=== PATIENT | female | born 1990 | race Hispanic/Latino ===

== ENCOUNTER 2018-02-18 03:28 | Emergency (ER) | payer OTHER ==
[2018-02-18] MEDS ORDERED: ALBUTEROL 2.5 MG/3 ML NEB SOL ONE ×2 (03:40→04:38)
[2018-02-18] MEDS ORDERED: METHYLPREDNISOLONE 125 MG INJ ONE (03:40)
[2018-02-18] MEDS ORDERED: IPRATROPIUM BROM 0.5MG/2.5ML ONE ×2 (03:40→04:38)
--- NOTE | 2018-02-18 05:13 | EDPHYS ---
Physician Documentation [facility] Name: Luci Whitley Age: 27 yrs Sex: Female : 1990 Arrival Date: 02/18/2018 Time: 03:28 Bed 20 Private MD: ED Physician Quinn Matute HPI: 02/18 03:56 This 27 yrs old Female presents to ER via Ambulatory with complaints of Asthma ps1 Exacerbation. 03:56 hx of asthma exacerbations in past. Took 3 albuterol AMBULATORY CARE COORDINATOR. Audible wheezing. No ps1 intubations. Feels like previous asthma exacerbations. Speaking in 3 word sentences. Not hypoxic. 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 - Social history:: Smoking status: Patient/guardian denies using tobacco. - Ebola Screening: : No symptoms or risks identified at this time. ROS: 03:56 Constitutional: Negative for fever, chills, and weight loss, Eyes: Negative for injury, ps1 pain, redness, and discharge, Cardiovascular: Negative for chest pain, palpitations, and edema, Abdomen/GI: Negative for abdominal pain, nausea, vomiting, diarrhea, and constipation, Back: Negative for injury and pain, MS/Extremity: Negative for injury and deformity, Skin: Negative for injury, rash, and discoloration, Neuro: Negative for headache, weakness, numbness, tingling, and seizure. 03:56 Respiratory: Positive for wheezing, expiratory, of the left posterior upper lobe, right posterior upper lobe, left posterior lower lobe, right posterior middle lobe and right posterior lower lobe. Exam: 03:56 Constitutional: This is a well developed, well nourished patient who is awake, alert, ps1 and in no acute distress. Head/Face: Normocephalic, atraumatic. Eyes: Pupils equal round and reactive to light, extra-ocular motions intact. Lids and lashes normal. Conjunctiva and sclera are non-icteric and not injected. Chest/axilla: Normal chest wall appearance and motion. Nontender with no deformity. No lesions are appreciated. Cardiovascular: Regular rate and rhythm. No gallops, murmurs, or rubs. Normal PMI, no JVD. No pulse deficits. Abdomen/GI: Soft, non-tender, with normal bowel sounds. No distension or tympany. No guarding or rebound. No evidence of tenderness throughout. Skin: Warm, dry with normal turgor. Normal color with no rashes, no lesions, and no evidence of cellulitis. MS/ Extremity: Pulses equal, no cyanosis. Neurovascular intact. Full, normal range of motion. Neuro: Awake and alert, GCS 15, oriented to person, place, time, and situation. Cranial nerves II-XII grossly intact. Sensory grossly intact. 03:56 Respiratory: mild respiratory distress is noted, Respirations: labored breathing, Breath sounds: wheezing: Vital Signs: 03:33 BP 138 / 104; Pulse 123; Resp 24; Temp 98.6(O); Pulse Ox 100% on R/A; Weight 104.33 kg ak1 (R); Height 5 ft. 4 in. (162.56 cm) (R); Pain 0/10; 04:28 BP 119 / 79; Pulse 111; Resp 20 S; Pulse Ox 100% on R/A; jd3 05:10 BP 109 / 73; Pulse 122; Resp 19 S; Pulse Ox 100% on R/A; jd3 03:33 Body Mass Index 39.48 (104.33 kg, 162.56 cm) ak1 MDM: 04:01 Patient medically screened. ps1 05:11 Data reviewed: vital signs, nurses notes, radiologic studies, plain films. Counseling: ps1 I had a detailed discussion with the patient and/or guardian regarding: the historical points, exam findings, and any diagnostic results supporting the discharge/admit diagnosis, radiology results, the need for outpatient follow up, an citrix lead. Medication response: albuterol nebulizer treatment(s) relieved the patient's symptoms. The patient is no longer wheezing. 02/18 03:43 Order name: Chest Pa And Lat (2 Views) XRAY jd3 02/18 03:43 Order name: IV; Complete Time: 03:43 jd3 Administered Medications: 03:42 Drug: SOLU-Medrol 125 mg Route: IVP; Site: left antecubital; jd3 04:12 Follow up: Response: No adverse reaction jd3 03:42 Drug: DuoNeb (3:1) (2.5 mg - 0.5 mg) 3 ml Route: Nebulizer; jd3 04:12 Follow up: Response: No adverse reaction jd3 04:35 Drug: DuoNeb (3:1) (2.5 mg - 0.5 mg) 3 ml Route: Nebulizer; jd3 05:11 Follow up: Response: No adverse reaction jd3 Disposition: 02/18/18 05:12 Discharged to Home. Impression: Mild intermittent asthma with (acute) exacerbation. - Condition is Stable. - Discharge Instructions: Asthma, Adult. - Prescriptions for Albuterol Sulfate 2.5 mg /3 mL (0.083 %) Inhalation Solution for Nebulization - inhale 1 unit by NEBULIZATION route every 8 hours As needed; 1 box. Medrol (Garth) 4 mg Oral Tablets, Dose Pack - take 1 tablet by ORAL route as directed - follow package instructions; 1 packet. Albuterol Sulfate 90 mcg/actuation - inhale 1-2 puff by INHALATION route every 4-6 hours; 1 Inhaler. - Medication Reconciliation Form, Thank You Letter, Antibiotic Education, Prescription Opioid Use form. - Follow up: Private Physician; Reason: Recheck today's complaints, Continuance of care, Re-evaluation by your physician. Follow up: Emergency Department; When: As needed; Reason: Fever > 102 F, Trouble breathing, Worsening of condition. - Problem is an acute exacerbation. - Symptoms are resolved. Signatures: Dispatcher [employer] EDFL Shara Albrecht RN RN ak1 Derrek Agee RN RN jd3 Quinn Matute MD MD ps1 Corrections: (The following items were deleted from the chart) 05:21 05:12 02/18/2018 05:12 Discharged to Home. Impression: Mild intermittent asthma with jd3 (acute) exacerbation. Condition is Stable. Forms are Medication Reconciliation Form, Thank You Letter, Antibiotic Education, Prescription Opioid Use. Follow up: Private Physician; Reason: Recheck today's complaints, Continuance of care, Re-evaluation by your physician. Follow up: Emergency Department; When: As needed; Reason: Fever > 102 F, Trouble breathing, Worsening of condition. Problem is an acute exacerbation. Symptoms are resolved. ps1
--- NOTE | 2018-02-18 05:13 | ER ---
Nurse's Notes [facility] Name: Luci Whitley Age: 27 yrs Sex: Female : 1990 Arrival Date: 02/18/2018 Time: 03:28 Bed 20 Private MD: Diagnosis: Mild intermittent asthma with (acute) exacerbation Presentation: 02/18 03:34 Presenting complaint: Patient states: SOB asthma attack started at 2100. pt used ak1 albuterol neb tx at 2100, albuterol inhaler at 0130 and last albuterol neb tx at 0300. pt c/o congestion and cough. Transition of care: patient was not received from another setting of care. Onset of symptoms was February 17, 2018. Risk Assessment: Do you want to hurt yourself or someone else? Patient reports no desire to harm self or others. Initial Sepsis Screen: Does the patient meet any 2 criteria? No. Patient's initial sepsis screen is negative. Does the patient have a suspected source of infection? No. Patient's initial sepsis screen is negative. Care prior to arrival: None. 03:34 Method Of Arrival: Ambulatory ak1 03:34 Acuity: [place] 3 ak1 Triage Assessment: 03:38 General: Appears distressed, uncomfortable, Behavior is cooperative. Pain: Denies pain. 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 - Social history:: Smoking status: Patient/guardian denies using tobacco. - Ebola Screening: : No symptoms or risks identified at this time. Screenin:38 Abuse screen: Denies threats or abuse. Denies injuries from another. Nutritional ak1 screening: No deficits noted. Tuberculosis screening: No symptoms or risk factors identified. Fall Risk None identified. Assessment: 03:35 General: Appears uncomfortable, Behavior is cooperative, anxious. Pain: Denies pain. jd3 Neuro: Level of Consciousness is awake, alert, obeys commands, Oriented to person, place, time, situation, Appropriate for age. Cardiovascular: Capillary refill < 3 seconds Patient's skin is warm and dry. Respiratory: Reports shortness of breath Airway is patent Respiratory effort is labored, Respiratory pattern is regular, Breath sounds with wheezes bilaterally. the patient has moderate shortness of breath. GI: No signs and/or symptoms were reported involving the gastrointestinal system. : No signs and/or symptoms were reported regarding the genitourinary system. EENT: No signs and/or symptoms were reported regarding the EENT system. Derm: Skin is intact, Skin is dry, Skin is normal, Skin temperature is warm. Musculoskeletal: Circulation, motion, and sensation intact. Range of motion: intact in all extremities. 04:35 Reassessment: Patient appears in no apparent distress at this time. Patient and/or jd3 family updated on plan of care and expected duration. Pain level reassessed. Patient is alert, oriented x 3, equal unlabored respirations, skin warm/dry/pink. pt reports feeling better after breathing treatment. Patient states feeling better. 05:11 Reassessment: Patient appears in no apparent distress at this time. Patient and/or jd3 family updated on plan of care and expected duration. Pain level reassessed. Patient is alert, oriented x 3, equal unlabored respirations, skin warm/dry/pink. Patient states feeling better. 05:20 Reassessment: Patient appears in no apparent distress at this time. Patient and/or jd3 family updated on plan of care and expected duration. Pain level reassessed. Patient is alert, oriented x 3, equal unlabored respirations, skin warm/dry/pink. Patient states feeling better. Vital Signs: 03:33 BP 138 / 104; Pulse 123; Resp 24; Temp 98.6(O); Pulse Ox 100% on R/A; Weight 104.33 kg ak1 (R); Height 5 ft. 4 in. (162.56 cm) (R); Pain 0/10; 04:28 BP 119 / 79; Pulse 111; Resp 20 S; Pulse Ox 100% on R/A; jd3 05:10 BP 109 / 73; Pulse 122; Resp 19 S; Pulse Ox 100% on R/A; jd3 03:33 Body Mass Index 39.48 (104.33 kg, 162.56 cm) ak1 ED Course: 03:28 Patient arrived in ED. ds1 03:33 Arm band placed on Patient placed in an exam room, on a stretcher, on pulse oximetry, ak1 Patient notified of wait time. 03:36 Triage completed. ak1 03:37 Patient has correct armband on for positive identification. Bed in low position. Call ak1 light in reach. Side rails up X 1. Pulse ox on. NIBP on. 03:38 Inserted saline lock: 20 gauge in left antecubital area, using aseptic technique. kadeem 03:40 Derrek Agee, RN is Primary Nurse. jd3 03:49 Quinn Matute MD is Attending Physician. ps1 04:06 Chest Pa And Lat (2 Views) XRAY In Process Unspecified. EDMS 05:19 No provider procedures requiring assistance completed. IV discontinued, intact, jd3 bleeding controlled, No redness/swelling at site. Pressure dressing applied. Administered Medications: 03:42 Drug: SOLU-Medrol 125 mg Route: IVP; Site: left antecubital; jd3 04:12 Follow up: Response: No adverse reaction jd3 03:42 Drug: DuoNeb (3:1) (2.5 mg - 0.5 mg) 3 ml Route: Nebulizer; jd3 04:12 Follow up: Response: No adverse reaction jd3 04:35 Drug: DuoNeb (3:1) (2.5 mg - 0.5 mg) 3 ml Route: Nebulizer; jd3 05:11 Follow up: Response: No adverse reaction jd3 Outcome: 05:12 Discharge ordered by MD. ps1 05:19 Discharged to home ambulatory. jd3 05:19 Condition: stable 05:19 Discharge instructions given to patient, Instructed on discharge instructions, follow up and referral plans. medication usage, Demonstrated understanding of instructions, follow-up care, medications, Prescriptions given X 3. 05:21 Patient left the ED. jd3 Signatures: Dispatcher [employer] [facility] Nunez, Christiane ds1 Shara Albrecht RN RN ak1 Lanie Agustin RN RN ea Davies, Jonathon, Quinn Ruiz RN, MD MD ps1 Corrections: (The following items were deleted from the chart) 04:35 04:11 Reassessment: Patient appears in no apparent distress at this time. Patient jd3 and/or family updated on plan of care and expected duration. Pain level reassessed. Patient is alert, oriented x 3, equal unlabored respirations, skin warm/dry/pink. pt reports feeling better after breathing treatment. Patient states feeling better. jd3
[2018-02-18 05:28] VITALS: TEMP 98.6; O2SAT 100
[2018-02-18 05:31] VITALS: BP 109/73
--- NOTE | 2018-02-18 06:09 | RAD REPORT ---
EXAM DESCRIPTION: Clyde Nieves (2 Views)02/18/2018 4:59 am CLINICAL HISTORY: Cough COMPARISON: 2012 FINDINGS: The lungs appear clear of acute infiltrate. The heart is normal size IMPRESSION: No acute abnormalities displayed
== END 2018-02-18 05:21 | disposition home or self-care (01) ==
LOC: ER 03:28
DX: J45.21 Mild intermittent asthma with (acute) exacerbation (principal); Z91.013 Allergy to seafood
CPT/HCPCS: 71046; 94640; 96374; 99284; J2930

== ENCOUNTER 2018-06-03 01:39 | Emergency (ER) | payer OTHER ==
[2018-06-03] MEDS ORDERED: MAGNESIUM SULFATE 1 gm IVPB 1 GM/100 ML BAG IV ONE (01:51)
[2018-06-03] MEDS ORDERED: IPRATROPIUM BROM 0.5MG/2.5ML ONE (01:51)
[2018-06-03] MEDS ORDERED: METHYLPREDNISOLONE 125 MG INJ ONE (01:51)
[2018-06-03] MEDS ORDERED: NA CHLORIDE 0.9% 1,000 ML ONE (01:51)
[2018-06-03] MEDS ORDERED: ALBUTEROL 2.5 MG/3 ML NEB SOL ONE (01:51)
[2018-06-03] MEDS ORDERED: LEVALBUTEROL 1.25 MG/3 ML NEB ONE (03:10)
--- NOTE | 2018-06-03 03:45 | EDPHYS ---
Physician Documentation [facility] Name: Luci Whitley Age: 27 yrs Sex: Female : 1990 Arrival Date: 06/03/2018 Time: 01:40 Bed 5 Private MD: ED Physician Andrea Xie HPI: 06/03 02:05 This 27 yrs old Female presents to ER via Wheelchair with complaints of jr8 Breathing Difficulty. 02:05 The patient has shortness of breath at rest. Onset: The symptoms/episode began/occurred jr8 acutely, today. Duration: The symptoms are continuous, and are markedly worse than the original presentation. The patient's shortness of breath is aggravated by coughing, light activity, talking, walking. Associated signs and symptoms: The patient has no apparent associated signs or symptoms. Severity of symptoms: At their worst the symptoms were moderate in the emergency department the symptoms are unchanged. The patient has experienced similar episodes in the past, a few times. The patient has not recently seen a physician. History of asthma. Started to have difficulty breathing today that markedly became worse tonight . 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 - Ebola Screening: : No symptoms or risks identified at this time. - Social history:: Smoking status: Patient/guardian denies using tobacco. ROS: 02:05 Eyes: Negative for injury, pain, redness, and discharge, ENT: Negative for injury, jr8 pain, and discharge, Neck: Negative for injury, pain, and swelling, Cardiovascular: Negative for chest pain, palpitations, and edema, Abdomen/GI: Negative for abdominal pain, nausea, vomiting, diarrhea, and constipation, Back: Negative for injury and pain, MS/Extremity: Negative for injury and deformity, Skin: Negative for injury, rash, and discoloration, Neuro: Negative for headache, weakness, numbness, tingling, and seizure. 02:05 Respiratory: Positive for cough, dyspnea on exertion, shortness of breath, wheezing. Exam: 02:05 Eyes: Pupils equal round and reactive to light, extra-ocular motions intact. Lids and jr8 lashes normal. Conjunctiva and sclera are non-icteric and not injected. Cornea within normal limits. Periorbital areas with no swelling, redness, or edema. ENT: Nares patent. No nasal discharge, no septal abnormalities noted. Tympanic membranes are normal and external auditory canals are clear. Oropharynx with no redness, swelling, or masses, exudates, or evidence of obstruction, uvula midline. Mucous membranes moist. Neck: Trachea midline, no thyromegaly or masses palpated, and no cervical lymphadenopathy. Supple, full range of motion without nuchal rigidity, or vertebral point tenderness. No Meningismus. Cardiovascular: Regular rate and rhythm with a normal S1 and S2. No gallops, murmurs, or rubs. Normal PMI, no JVD. No pulse deficits. Abdomen/GI: Soft, non-tender, with normal bowel sounds. No distension or tympany. No guarding or rebound. No evidence of tenderness throughout. Back: No spinal tenderness. No costovertebral tenderness. Full range of motion. Skin: Warm, dry with normal turgor. Normal color with no rashes, no lesions, and no evidence of cellulitis. MS/ Extremity: Pulses equal, no cyanosis. Neurovascular intact. Full, normal range of motion. Psych: Awake, alert, with orientation to person, place and time. Behavior, mood, and affect are within normal limits. 02:05 Respiratory: moderate respiratory distress is noted, Respirations: labored breathing, accessory muscle usage, tachypnea, Breath sounds: wheezing: expiratory that is moderate, is heard diffusely. Vital Signs: 01:48 BP 138 / 80; Pulse 137; Resp 24; Temp 98.9(A); Pulse Ox 100% on R/A; Weight 90.72 kg; tl2 Height 5 ft. 6 in. (167.64 cm); 02:03 Pulse 120; Resp 16; Pulse Ox 100% on Nebulizer Mask; lp1 02:45 BP 114 / 63; Pulse 109; Resp 20; Pulse Ox 97% on R/A; lp1 03:30 BP 107 / 81; Pulse 112; Resp 19; Pulse Ox 100% on Nebulizer Mask; lp1 04:00 BP 103 / 84; Pulse 110; Resp 21; Pulse Ox 98% on R/A; ca1 01:48 Body Mass Index 32.28 (90.72 kg, 167.64 cm) tl2 MDM: 01:47 Patient medically screened. jr8 01:49 Patient medically screened. jr8 03:01 Data reviewed: vital signs, nurses notes, radiologic studies, plain films. Data jr8 interpreted: Pulse oximetry: on room air is 95 %. Interpretation: normal. Counseling: I had a detailed discussion with the patient and/or guardian regarding: the historical points, exam findings, and any diagnostic results supporting the discharge/admit diagnosis, radiology results, the need for outpatient follow up, a family practitioner, to return to the emergency department if symptoms worsen or persist or if there are any questions or concerns that arise at home. Response to treatment: the patient's symptoms have markedly improved after treatment. 06/03 01:48 Order name: XRAY Chest (1 view) jr8 06/03 01:47 Order name: IV; Complete Time: 01:52 jr8 Administered Medications: 01:44 Drug: SOLU-Medrol 125 mg Route: IVP; Site: right antecubital; tl2 02:50 Follow up: Response: No adverse reaction lp1 01:44 Drug: Magnesium Sulfate 1 grams Route: IVPB; Infused Over: 1 hrs; Site: right tl2 antecubital; 02:50 Follow up: IV Status: Completed infusion; IV Intake: 100ml lp1 01:44 Drug: NS 0.9% 1000 ml Route: IV; Rate: 1000 ml; Site: right antecubital; tl2 04:06 Follow up: IV Status: Completed infusion ca1 01:52 Drug: DuoNeb (3:1) (2.5 mg - 0.5 mg) 3 ml Route: Nebulizer; tl2 02:50 Follow up: Response: Marked relief of symptoms lp1 03:05 Drug: Xopenex (3) 1.25 mg Route: Inhalation; lp1 Disposition: 15:53 Co-signature as Attending Physician, Andrea Xie MD I agree with the assessment and dex plan of care. Disposition: 06/03/18 03:44 Discharged to Home. Impression: Mild persistent asthma with (acute) exacerbation. - Condition is Stable. - Discharge Instructions: Asthma, Adult. - Prescriptions for Prednisone 20 mg Oral Tablet - take 1 tablet by ORAL route once daily for 5 days; 5 tablet. Albuterol Sulfate 2.5 mg /3 mL (0.083 %) Inhalation Solution for Nebulization - inhale 1 unit by NEBULIZATION route every 8 hours As needed; 1 box. Albuterol Sulfate 90 mcg/actuation - inhale 1-2 puff by INHALATION route every 4-6 hours; 1 Inhaler. - Medication Reconciliation Form, Thank You Letter, Antibiotic Education, Prescription Opioid Use form. - Follow up: Private Physician; When: 2 - 3 days; Reason: Recheck today's complaints, Continuance of care, Re-evaluation by your physician. - Problem is new. - Symptoms have improved. Signatures: Dispatcher [employer] EDMS Andrea Xie MD MD cha Pena, Laura, RN RN lp1 Guanako Pierre PA PA jr8 Balbina Cano, RN RN tl2 Heather Morrison RN RN ca1 Corrections: (The following items were deleted from the chart) 04:05 03:44 06/03/2018 03:44 Discharged to Home. Impression: Mild persistent asthma with ca1 (acute) exacerbation. Condition is Stable. Discharge Instructions: Asthma, Adult. Prescriptions for Prednisone 20 mg Oral Tablet - take 1 tablet by ORAL route once daily for 5 days; 5 tablet, Albuterol Sulfate 2.5 mg /3 mL (0.083 %) Inhalation Solution for Nebulization - inhale 1 unit by NEBULIZATION route every 8 hours As needed; 1 box, Albuterol Sulfate 90 mcg/actuation - inhale 1-2 puff by INHALATION route every 4-6 hours; 1 Inhaler. and Forms are Medication Reconciliation Form, Thank You Letter, Antibiotic Education, Prescription Opioid Use. Follow up: Private Physician; When: 2 - 3 days; Reason: Recheck today's complaints, Continuance of care, Re-evaluation by your physician. Problem is new. Symptoms have improved. jr8
--- NOTE | 2018-06-03 03:45 | ER ---
Nurse's Notes [facility] Name: Luci Whitley Age: 27 yrs Sex: Female : 1990 Arrival Date: 06/03/2018 Time: 01:40 Bed 5 Private MD: Diagnosis: Mild persistent asthma with (acute) exacerbation Presentation: 06/03 01:45 Presenting complaint: Patient states: Asthma attack all day, has gotten worse tonight. tl2 Severe labored breathing and coughing. DARIEL wheezing and tightness. Transition of care: patient was not received from another setting of care. Onset of symptoms was June 02, 2018. Risk Assessment: Do you want to hurt yourself or someone else? Patient reports no desire to harm self or others. Initial Sepsis Screen: Does the patient meet any 2 criteria? No. Patient's initial sepsis screen is negative. Does the patient have a suspected source of infection? No. Patient's initial sepsis screen is negative. Care prior to arrival: None. 01:45 Method Of Arrival: Wheelchair tl2 01:45 Acuity: [place] 2 tl2 Triage Assessment: 01:48 General: Appears distressed, Behavior is anxious. Pain: Denies pain. Neuro: Level of tl2 Consciousness is awake, alert, obeys commands, Oriented to person, place, time, situation. Respiratory: Reports shortness of breath cough that is labored breathing Airway is patent Respiratory effort is labored, with retractions, Respiratory pattern is tachypnea Breath sounds with wheezes bilaterally. Onset: The symptoms/episode began/occurred today, the patient has severe shortness of breath. GI: No signs and/or symptoms were reported involving the gastrointestinal system. : No signs and/or symptoms were reported regarding the genitourinary system. Derm: Skin is pink, warm \T\ dry. 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 - Ebola Screening: : No symptoms or risks identified at this time. - Social history:: Smoking status: Patient/guardian denies using tobacco. Screenin:51 Abuse screen: Denies threats or abuse. Nutritional screening: No deficits noted. tl2 Tuberculosis screening: No symptoms or risk factors identified. Fall Risk None identified. Assessment: 01:51 General: see triage assessment. tl2 01:53 Cardiovascular: Rhythm is. tl2 02:54 Reassessment: Patient appears in no apparent distress at this time. Patient and/or ca1 family updated on plan of care and expected duration. Pain level reassessed. Patient is alert, oriented x 3, equal unlabored respirations, skin warm/dry/pink. Patient sitting on bed. . 03:00 Reassessment: Patient states feeling better. General: Behavior is calm. Respiratory: lp1 Respiratory effort is even, Respiratory pattern is regular, symmetrical, Breath sounds with wheezes bilaterally. 04:00 Reassessment: Patient appears in no apparent distress at this time. Patient and/or ca1 family updated on plan of care and expected duration. Pain level reassessed. Patient is alert, oriented x 3, equal unlabored respirations, skin warm/dry/pink. Patient states feeling better. Patient states symptoms have improved. Vital Signs: 01:48 BP 138 / 80; Pulse 137; Resp 24; Temp 98.9(A); Pulse Ox 100% on R/A; Weight 90.72 kg; tl2 Height 5 ft. 6 in. (167.64 cm); 02:03 Pulse 120; Resp 16; Pulse Ox 100% on Nebulizer Mask; lp1 02:45 BP 114 / 63; Pulse 109; Resp 20; Pulse Ox 97% on R/A; lp1 03:30 BP 107 / 81; Pulse 112; Resp 19; Pulse Ox 100% on Nebulizer Mask; lp1 04:00 BP 103 / 84; Pulse 110; Resp 21; Pulse Ox 98% on R/A; ca1 01:48 Body Mass Index 32.28 (90.72 kg, 167.64 cm) tl2 ED Course: 01:40 Patient arrived in ED. es 01:47 Triage completed. tl2 01:47 Guanako Pierre PA is PHCP. jr8 01:48 Andrea Xie MD is Attending Physician. jr8 01:48 Arm band placed on right wrist. tl2 01:51 Patient has correct armband on for positive identification. Bed in low position. Call tl2 light in reach. Side rails up X 1. 01:51 Inserted saline lock: 20 gauge in right antecubital area, using aseptic technique. tl2 placed by LARISSA Huffman. 02:03 Armida De León RN is Primary Nurse. lp1 02:19 X-ray completed. Portable x-ray completed in exam room. Patient tolerated procedure kw well. 02:21 XRAY Chest (1 view) In Process Unspecified. EDMS 03:38 No provider procedures requiring assistance completed. lp1 04:00 IV discontinued, intact, bleeding controlled, No redness/swelling at site. Pressure ca1 dressing applied. Administered Medications: 01:44 Drug: SOLU-Medrol 125 mg Route: IVP; Site: right antecubital; tl2 02:50 Follow up: Response: No adverse reaction lp1 01:44 Drug: Magnesium Sulfate 1 grams Route: IVPB; Infused Over: 1 hrs; Site: right tl2 antecubital; 02:50 Follow up: IV Status: Completed infusion; IV Intake: 100ml lp1 01:44 Drug: NS 0.9% 1000 ml Route: IV; Rate: 1000 ml; Site: right antecubital; tl2 04:06 Follow up: IV Status: Completed infusion ca1 01:52 Drug: DuoNeb (3:1) (2.5 mg - 0.5 mg) 3 ml Route: Nebulizer; tl2 02:50 Follow up: Response: Marked relief of symptoms lp1 03:05 Drug: Xopenex (3) 1.25 mg Route: Inhalation; lp1 Intake: 02:50 IV: 100ml; Total: 100ml. lp1 Outcome: 03:44 Discharge ordered by MD. hardy 04:00 Discharged to home ambulatory. ca1 04:00 Condition: stable 04:00 Discharge instructions given to patient, Instructed on discharge instructions, follow up and referral plans. medication usage, Demonstrated understanding of instructions, follow-up care, medications, Prescriptions given X 3. 04:05 Patient left the ED. ca1 Signatures: Dispatcher [employer] EDCherelle Morfin Kimberlee kw Pena, Laura, RN RN lp1 Guanako Pierre PA PA jr8 Knox, Taylor, RN RN tl2 Heather Morrison RN RN ca1 Corrections: (The following items were deleted from the chart) 04:02 04:02 Reassessment: Patient appears in no apparent distress at this time. Patient ca1 and/or family updated on plan of care and expected duration. Pain level reassessed. Patient is alert, oriented x 3, equal unlabored respirations, skin warm/dry/pink. Patient states feeling better. Patient states symptoms have improved. ca1
[2018-06-03 04:42] VITALS: TEMP 98.9
[2018-06-03 04:45] VITALS: BP 107/81; O2SAT 100
--- NOTE | 2018-06-03 08:05 | RAD REPORT ---
EXAM DESCRIPTION: Cly[place] Single View06/03/2018 2:22 am CLINICAL HISTORY: Shortness of breath COMPARISON: February 2018 FINDINGS: The lungs appear clear of acute infiltrate. The heart is normal size. IMPRESSION: No acute abnormalities displayed
--- NOTE | 2018-06-03 18:08 | EKG ---
Test Date: 2018-06-03 Test Time: 01:48:38 Pressure Controller: STONEY MEASUREMENT RESULTS: Intervals: Rate: 131 DC: 140 QRSD: 70 QT: 292 QTc: 431 Spearfish: P: 64 DC: 140 QRS: 70 T: 49 INTERPRETIVE STATEMENTS: Sinus tachycardia Otherwise normal ECG Electronically Signed On 06-03-18 18:05:32 HOME MISSION WORKER by Ambrosio Acevedo
== END 2018-06-03 04:05 | disposition home or self-care (01) ==
LOC: ER 01:39
DX: J45.31 Mild persistent asthma with (acute) exacerbation (principal); E03.9 Hypothyroidism, unspecified; Z91.013 Allergy to seafood
CPT/HCPCS: 71045; 93005; 94640; 96361; 96365; 96375; 99284; J2930; J3475; J7030

== ENCOUNTER 2018-09-13 19:12 | Emergency (ER) | payer OTHER ==
[2018-09-13] MEDS ORDERED: ALBUTEROL 2.5 MG/3 ML NEB SOL ONE (19:27)
[2018-09-13] MEDS ORDERED: IPRATROPIUM BROM 0.5MG/2.5ML ONE (19:27)
[2018-09-13] MEDS ORDERED: METHYLPREDNISOLONE 125 MG INJ ONE (19:27)
[2018-09-13] MEDS ORDERED: NA CHLORIDE 0.9% 0 ML ONE (19:28)
[2018-09-13] MEDS ORDERED: Magnesium Sulfate 2gm IVPB 0 G/0 ML BAG IV ONE (19:28)
--- NOTE | 2018-09-13 21:41 | EDPHYS ---
Physician Documentation [facility] Name: Luci Whitley Age: 27 yrs Sex: Female : 1990 Arrival Date: 09/13/2018 Time: 19:13 Bed 13 Private MD: Julien Shoemaker H ED Physician Juan Carlos Darling HPI: 09/13 19:21 This 27 yrs old Female presents to ER via Unassigned with complaints of Asthma tw4 Exacerbation. 19:21 The patient presents to the emergency department with wheezing, Current therapy: None. tw4 Onset: The symptoms/episode began/occurred today. Modifying factors: The symptoms are alleviated by nothing, the symptoms are aggravated by nothing. Associated signs and symptoms: The patient has no apparent associated signs or symptoms. Severity of symptoms: At their worst the symptoms were moderate in the emergency department the symptoms are unchanged. The patient has not experienced similar symptoms in the past. 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 - Social history:: Smoking status: Patient/guardian denies using tobacco, Patient/guardian denies using alcohol, street drugs. - Ebola Screening: : No symptoms or risks identified at this time. ROS: 19:21 Constitutional: Negative for fever, chills, and weight loss, Eyes: Negative for injury, tw4 pain, redness, and discharge, Cardiovascular: Negative for chest pain, palpitations, and edema, Abdomen/GI: Negative for abdominal pain, nausea, vomiting, diarrhea, and constipation, Back: Negative for injury and pain, MS/Extremity: Negative for injury and deformity, Skin: Negative for injury, rash, and discoloration, Neuro: Negative for headache, weakness, numbness, tingling, and seizure. 19:21 Respiratory: Positive for cough, with no reported sputum, shortness of breath, wheezing. Exam: 19:21 Constitutional: This is a well developed, well nourished patient who is awake, alert, tw4 and in no acute distress. Head/Face: Normocephalic, atraumatic. Chest/axilla: Normal chest wall appearance and motion. Nontender with no deformity. No lesions are appreciated. Cardiovascular: Regular rate and rhythm with a normal S1 and S2. No gallops, murmurs, or rubs. Normal PMI, no JVD. No pulse deficits. Respiratory: Lungs have equal breath sounds bilaterally, clear to auscultation and percussion. No rales, rhonchi or wheezes noted. No increased work of breathing, no retractions or nasal flaring. Abdomen/GI: Soft, non-tender, with normal bowel sounds. No distension or tympany. No guarding or rebound. No evidence of tenderness throughout. Skin: Warm, dry with normal turgor. Normal color with no rashes, no lesions, and no evidence of cellulitis. MS/ Extremity: Pulses equal, no cyanosis. Neurovascular intact. Full, normal range of motion. Neuro: Awake and alert, GCS 15, oriented to person, place, time, and situation. Cranial nerves II-XII grossly intact. Motor strength 5/5 in all extremities. Sensory grossly intact. Cerebellar exam normal. Normal gait. Vital Signs: 19:20 BP 133 / 119; Pulse 119; Resp 14 S; Temp 98.2(O); Pulse Ox 99% on R/A; Weight 102.06 kg bb (R); Height 5 ft. 4 in. (162.56 cm) (R); Pain 4/10; 19:35 BP 124 / 90; Pulse 108; Resp 14 S; Pulse Ox 98% on 7% Nebulizer Mask; bb 20:45 BP 119 / 68; Pulse 111; Resp 20 S; Pulse Ox 98% on 2 lpm NC; cc3 21:45 BP 120 / 82; Pulse 109; Resp 19 S; Pulse Ox 96% on R/A; cc3 19:20 Body Mass Index 38.62 (102.06 kg, 162.56 cm) bb MDM: 19:17 Patient medically screened. tw4 09/14 07:18 Differential diagnosis: acute asthma. Data reviewed: vital signs, nurses notes. Data tw4 interpreted: Pulse oximetry: is not applicable for this patient encounter. Counseling: I had a detailed discussion with the patient and/or guardian regarding: the historical points, exam findings, and any diagnostic results supporting the discharge/admit diagnosis, the presence of at least one elevated blood pressure reading (>120/80) during this emergency department visit, lab results. Medication response: albuterol nebulizer treatment(s) relieved the patient's symptoms. The patient is no longer wheezing. Response to treatment: and as a result, I will discharge patient. Administered Medications: 09/13 19:18 Drug: DuoNeb (3:1) (2.5 mg - 0.5 mg) 3 ml Route: Nebulizer; bb 20:00 Follow up: Response: No adverse reaction; Marked relief of symptoms cc3 19:21 Drug: SOLU-Medrol 125 mg Route: IVP; Site: right antecubital; bb 20:00 Follow up: Response: No adverse reaction; Marked relief of symptoms cc3 Disposition: 09/13/18 21:40 Discharged to Home. Impression: Asthma. - Condition is Stable. - Discharge Instructions: Asthma, Acute Bronchospasm. - Prescriptions for Albuterol Sulfate 2.5 mg /3 mL (0.083 %) Inhalation Solution for Nebulization - inhale 1 unit by NEBULIZATION route every 8 hours As needed; 1 box. Medrol (Garth) 4 mg Oral Tablets, Dose Pack - take 1 tablet by ORAL route as directed - follow package instructions; 1 packet. Albuterol Sulfate 90 mcg/actuation - inhale 1-2 puff by INHALATION route every 4-6 hours; 1 Inhaler. - Medication Reconciliation Form, Thank You Letter, Antibiotic Education, Prescription Opioid Use form. - Follow up: Julien Shoemaker DO; When: Upon discharge from the Emergency Department; Reason: If symptoms return, Recheck today's complaints, Continuance of care. - Problem is new. - Symptoms have improved. Signatures: Taylor Simeon RN RN Juan Carlos Mccullough MD MD tw4 Amalia Payne cc3 Corrections: (The following items were deleted from the chart) 21:54 21:40 09/13/2018 21:40 Discharged to Home. Impression: Asthma. Condition is Stable. cc3 Forms are Medication Reconciliation Form, Thank You Letter, Antibiotic Education, Prescription Opioid Use. Follow up: Julien Shoemaker; When: Upon discharge from the Emergency Department; Reason: If symptoms return, Recheck today's complaints, Continuance of care. Problem is new. Symptoms have improved. tw4
--- NOTE | 2018-09-13 21:41 | ER ---
Nurse's Notes [facility] Name: Luci Whitley Age: 27 yrs Sex: Female : 1990 Arrival Date: 09/13/2018 Time: 19:13 Bed 13 Private MD: Julien Shoemaker H Diagnosis: Asthma Presentation: 09/13 19:15 Presenting complaint: Patient states: she has been having an asthma attack for the last bb 2 hours pt is SOB and unable to speak in full sentences. Transition of care: patient was not received from another setting of care. Onset of symptoms was September 13, 2018. Risk Assessment: Do you want to hurt yourself or someone else? Patient reports no desire to harm self or others. Initial Sepsis Screen: Does the patient meet any 2 criteria? No. Patient's initial sepsis screen is negative. Does the patient have a suspected source of infection? No. Patient's initial sepsis screen is negative. Care prior to arrival: None. 19:15 Method Of Arrival: Ambulatory bb 19:15 Acuity: [place] 2 bb Triage Assessment: 19:15 General: Appears distressed, uncomfortable, Behavior is calm, cooperative. Pain: bb Complains of pain in back. Neuro: Level of Consciousness is awake, alert, obeys commands, Oriented to person, place, time, situation. Cardiovascular: Heart tones S1 S2 present Capillary refill < 3 seconds Patient's skin is warm and dry. Respiratory: Respiratory effort is labored, Respiratory pattern is symmetrical, Breath sounds with wheezes bilaterally. the patient has moderate shortness of breath. GI: No signs and/or symptoms were reported involving the gastrointestinal system. Derm: Skin is pink, warm \T\ dry. Musculoskeletal: Circulation, motion, and sensation intact. 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 - Social history:: Smoking status: Patient/guardian denies using tobacco, Patient/guardian denies using alcohol, street drugs. - Ebola Screening: : No symptoms or risks identified at this time. Screenin:42 Abuse screen: Denies threats or abuse. Nutritional screening: No deficits noted. bb Tuberculosis screening: No symptoms or risk factors identified. Fall Risk None identified. Assessment: 19:42 Reassessment: No changes from previously documented assessment. see triage assessment. bb 20:30 Reassessment: Patient appears in no apparent distress at this time. Patient and/or cc3 family updated on plan of care and expected duration. Pain level reassessed. Patient is alert, oriented x 3, equal unlabored respirations, skin warm/dry/pink. 21:40 Reassessment: Patient appears in no apparent distress at this time. Patient and/or cc3 family updated on plan of care and expected duration. Pain level reassessed. Patient is alert, oriented x 3, equal unlabored respirations, skin warm/dry/pink. Dr. Darling ordered discharge for the patient, called the patient's Nathan on his mobile number [phone] and he said he'll come by to fetch her . 21:50 Reassessment: Patient discharged home, IV cannula removed and patient left ER vitally cc3 stable and ambulatory and said she'll wait for her in the lobby. Patient denies pain at this time. Patient states feeling better. Patient states symptoms have improved. Vital Signs: 19:20 BP 133 / 119; Pulse 119; Resp 14 S; Temp 98.2(O); Pulse Ox 99% on R/A; Weight 102.06 kg bb (R); Height 5 ft. 4 in. (162.56 cm) (R); Pain 4/10; 19:35 BP 124 / 90; Pulse 108; Resp 14 S; Pulse Ox 98% on 7% Nebulizer Mask; bb 20:45 BP 119 / 68; Pulse 111; Resp 20 S; Pulse Ox 98% on 2 lpm NC; cc3 21:45 BP 120 / 82; Pulse 109; Resp 19 S; Pulse Ox 96% on R/A; cc3 19:20 Body Mass Index 38.62 (102.06 kg, 162.56 cm) ED Course: 19:13 Patient arrived in ED. es 19:13 Julien Shoemaker DO is Private Physician. es 19:15 Arm band placed on Patient placed in an exam room, on a stretcher, on pulse oximetry, bb breathing treatment initiated. 19:16 Amalia Payne is Primary Nurse. cc3 19:17 Juan Carlos Darling MD is Attending Physician. tw4 19:20 Pulse ox on. NIBP on. bb 19:20 Inserted saline lock: 20 gauge in right antecubital area, using aseptic technique. bb 19:37 Triage completed. bb 19:42 Patient has correct armband on for positive identification. Bed in low position. Call bb light in reach. Side rails up X 1. 21:39 Julien Shoemaker DO is Referral Physician. tw4 21:50 No provider procedures requiring assistance completed. IV discontinued, intact, cc3 bleeding controlled, No redness/swelling at site. Pressure dressing applied. Administered Medications: 19:18 Drug: DuoNeb (3:1) (2.5 mg - 0.5 mg) 3 ml Route: Nebulizer; 20:00 Follow up: Response: No adverse reaction; Marked relief of symptoms cc3 19:21 Drug: SOLU-Medrol 125 mg Route: IVP; Site: right antecubital; 20:00 Follow up: Response: No adverse reaction; Marked relief of symptoms cc3 Outcome: 21:40 Discharge ordered by . tw4 21:50 Discharged to home ambulatory. cc3 21:50 Condition: stable 21:50 Discharge instructions given to patient, Instructed on discharge instructions, follow up and referral plans. medication usage, Demonstrated understanding of instructions, follow-up care, medications, Prescriptions given X 3. 21:54 Patient left the ED. cc3 Signatures: Cherelle Cano Brenda, RN RN bb Juan Carlos Darling MD MD tw4 Amalia Payne cc3 Corrections: (The following items were deleted from the chart) 21:44 20:45 BP 119 / 68; Pulse 111bpm; Resp 20bpm; Spontaneous; Pulse Ox 98% RA; cc3 cc3 22:02 21:40 Reassessment: Patient appears in no apparent distress at this time. Patient cc3 and/or family updated on plan of care and expected duration. Pain level reassessed. Patient is alert, oriented x 3, equal unlabored respirations, skin warm/dry/pink. Dr. Darling ordered discharge for the patient, called the patient's on his mobile number and he said he'll come by to fetch her . cc3
[2018-09-14 09:23] VITALS: TEMP 98.2
[2018-09-14 09:25] VITALS: O2SAT 98
[2018-09-14 09:26] VITALS: BP 119/68
== END 2018-09-13 21:54 | disposition home or self-care (01) ==
LOC: ER 19:12
DX: J45.909 Unspecified asthma, uncomplicated (principal); E03.9 Hypothyroidism, unspecified; Z91.013 Allergy to seafood
CPT/HCPCS: 94640; 96374; 99284; J2930; J3475; J7030

== ENCOUNTER 2019-06-19 15:09 | Emergency (ER) | payer OTHER ==
[2019-06-19] MEDS ORDERED: IPRATROPIUM BROM 0.5MG/2.5ML ONE (15:38)
[2019-06-19] MEDS ORDERED: ALBUTEROL 2.5 MG/3 ML NEB SOL ONE ×2 (15:38→17:02)
[2019-06-19] MEDS ORDERED: Magnesium Sulfate 2gm IVPB 2 G/50 ML BAG IV ONE (15:38)
[2019-06-19] MEDS ORDERED: METHYLPREDNISOLONE 125 MG INJ ONE (15:38)
[2019-06-19] MEDS ORDERED: NA CHLORIDE 0.9% 1,000 ML ONE (15:38)
--- NOTE | 2019-06-19 16:15 | RAD REPORT ---
EXAM DESCRIPTION: Clyde Nieves (2 Views)06/19/2019 3:40 pm CLINICAL HISTORY: sob COMPARISON: 2018 FINDINGS: The lungs appear clear of acute infiltrate. The heart is normal size IMPRESSION: No acute abnormalities displayed
--- NOTE | 2019-06-19 18:12 | ER ---
Nurse's Notes [facility] Name: Luci Whitley Age: 28 yrs Sex: Female : 1990 Arrival Date: 06/19/2019 Time: 15:19 Bed 26 Private MD: Diagnosis: Unspecified asthma with (acute) exacerbation Presentation: 06/19 15:24 Presenting complaint: Patient states: i have been like this for about a month but my tw2 asthma has just gotten really bad, i am wheezing and i cant get better and i used my inhaler but i am still wheezing, feels like something is stuck in my lungs. Transition of care: patient was not received from another setting of care. Onset of symptoms was June 19, 2019. Risk Assessment: Do you want to hurt yourself or someone else? Patient reports no desire to harm self or others. 15:24 Method Of Arrival: Ambulatory tw2 15:24 Acuity: [place] 3 tw2 15:24 Care prior to arrival: None. tw2 15:49 Initial Sepsis Screen: Does the patient meet any 2 criteria? No. Patient's initial rv sepsis screen is negative. Does the patient have a suspected source of infection? No. Patient's initial sepsis screen is negative. Triage Assessment: 15:27 General: Appears obese, well groomed, Behavior is cooperative, appropriate for age. tw2 Respiratory: Reports shortness of breath at rest on exertion Airway is patent Respiratory effort is even, labored, Respiratory pattern is tachypnea Breath sounds with wheezes bilaterally. 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 - Social history:: Smoking status: . - Ebola Screening: : Patient denies travel to an Ebola-affected area in the 21 days before illness onset. Screenin:49 Abuse screen: Denies threats or abuse. Denies injuries from another. Nutritional rv screening: No deficits noted. Tuberculosis screening: No symptoms or risk factors identified. Fall Risk None identified. Assessment: 15:47 General: Appears uncomfortable, Behavior is. Pain: Denies pain. Neuro: Level of rv Consciousness is awake, alert, obeys commands, Oriented to person, place, time, situation. Cardiovascular: Patient's skin is warm and dry. Rhythm is sinus tachycardia. Respiratory: Respiratory effort is labored, Breath sounds with wheezes bilaterally. 16:26 Reassessment: Patient appears in no apparent distress at this time. Patient states rv feeling better. 17:32 Reassessment: Patient appears in no apparent distress at this time. Patient and/or rv family updated on plan of care and expected duration. Pain level reassessed. Patient is alert, oriented x 3, equal unlabored respirations, skin warm/dry/pink. Vital Signs: 15:27 BP 161 / 93; Pulse 103; Resp 22; Temp 98.5(TE); Pulse Ox 98% on R/A; Weight 99.79 kg tw2 (R); Height 5 ft. 4 in. (162.56 cm) (R); Pain 7/10; 16:27 BP 120 / 71; Pulse 110; Resp 21; Pulse Ox 99% on R/A; rv 17:32 BP 100 / 66; Pulse 111; Resp 18; Pulse Ox 100% on Nebulizer Mask; rv 18:09 BP 104 / 58; Pulse 111; Resp 17; Pulse Ox 98% on R/A; rv 15:27 Body Mass Index 37.76 (99.79 kg, 162.56 cm) tw2 ED Course: 15:19 Patient arrived in ED. ag5 15:22 Ange Paige FNP-C is PHCP. kb 15:22 Andrea Xie MD is Attending Physician. kb 15:26 Triage completed. tw2 15:26 Arm band placed on. tw2 15:30 Paco Valerio RN is Primary Nurse. rv 15:47 Inserted saline lock: 22 gauge in right antecubital area, using aseptic technique. rv 15:49 Chest Pa And Lat (2 Views) XRAY In Process Unspecified. EDMS 15:49 Patient has correct armband on for positive identification. Pulse ox on. NIBP on. rv 18:10 No provider procedures requiring assistance completed. IV discontinued, intact, rv bleeding controlled, No redness/swelling at site. Pressure dressing applied. Administered Medications: 15:48 Drug: Magnesium Sulfate 2 grams Route: IVPB; Infused Over: 2 hrs; Site: right rv antecubital; 16:28 Follow up: IV Status: Completed infusion rv 15:48 Drug: SOLU-Medrol 125 mg Route: IVP; Site: right antecubital; rv 16:28 Follow up: Response: No adverse reaction rv 15:48 Drug: NS 0.9% 1000 ml Route: IV; Rate: 1000 ml; Site: right antecubital; rv 16:28 Follow up: IV Status: Completed infusion; IV Intake: 1000ml rv 15:49 Drug: DuoNeb (3:1) (2.5 mg - 0.5 mg) 3 ml Route: Nebulizer; rv 16:28 Follow up: Response: No adverse reaction; Wheezing diminished rv 17:02 Drug: Albuterol 2.5 mg Route: Inhalation; rv 17:03 Drug: Albuterol 2.5 mg Route: Inhalation; rv 18:10 Follow up: Response: Marked relief of symptoms rv 17:03 Drug: Albuterol 2.5 mg Route: Inhalation; rv Intake: 16:28 IV: 1000ml; Total: 1000ml. rv Outcome: 17:42 Discharge ordered by . kb 18:10 Discharged to home ambulatory. rv 18:10 Condition: good 18:10 Discharge instructions given to patient, Instructed on discharge instructions, follow up and referral plans. medication usage, Demonstrated understanding of instructions, follow-up care, medications, Prescriptions given X 2. 18:10 Patient left the ED. rv Signatures: Dispatcher [employer] EDMD Ange Paige, KIM VILLELAP-Arlin Denson RN RN tw2 Paco Valerio RN RN rv Poonam Ambrocio ag5 Corrections: (The following items were deleted from the chart) 15:26 15:24 Initial Sepsis Screen: tw tw
--- NOTE | 2019-06-19 18:13 | EDPHYS ---
Physician Documentation [facility] Name: Luci Whitley Age: 28 yrs Sex: Female : 1990 Arrival Date: 06/19/2019 Time: 15:19 Bed 26 Private MD: ED Physician Andrea Xie HPI: 06/19 16:20 This 28 yrs old Female presents to ER via Ambulatory with complaints of Asthma kb Exacerbation. 16:20 The patient presents to the emergency department with wheezing, Current therapy: kb albuterol inhaler, antibiotics, oral steroids. Onset: The symptoms/episode began/occurred 1 month(s) ago. Modifying factors: The symptoms are alleviated by nothing, the symptoms are aggravated by nothing. Associated signs and symptoms: The patient has no apparent associated signs or symptoms. Severity of symptoms: At their worst the symptoms were moderate in the emergency department the symptoms are unchanged. The patient has experienced similar episodes in the past. The patient has not recently seen a physician. Pt reports she has been having trouble with her asthma for a month. was seen at Urgent care and given an antibiotics and steroids that were completed before . Symptoms have been worse over the last 4 days. . 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 - Social history:: Smoking status: . - Ebola Screening: : Patient denies travel to an Ebola-affected area in the 21 days before illness onset. ROS: 16:19 Constitutional: Negative for fever, chills, and weight loss, ENT: Negative for injury, kb pain, and discharge, Neck: Negative for injury, pain, and swelling, Cardiovascular: Negative for chest pain, palpitations, and edema, Abdomen/GI: Negative for abdominal pain, nausea, vomiting, diarrhea, and constipation, Back: Negative for injury and pain, MS/Extremity: Negative for injury and deformity, Skin: Negative for injury, rash, and discoloration, Neuro: Negative for headache, weakness, numbness, tingling, and seizure. 16:19 Respiratory: Positive for shortness of breath, wheezing. Exam: 16:19 Constitutional: This is a well developed, well nourished patient who is awake, alert, kb and in no acute distress. Head/Face: Normocephalic, atraumatic. ENT: Nares patent. No nasal discharge, no septal abnormalities noted. Tympanic membranes are normal and external auditory canals are clear. Oropharynx with no redness, swelling, or masses, exudates, or evidence of obstruction, uvula midline. Mucous membranes moist. Neck: Trachea midline, no thyromegaly or masses palpated, and no cervical lymphadenopathy. Supple, full range of motion without nuchal rigidity, or vertebral point tenderness. No Meningismus. Chest/axilla: Normal chest wall appearance and motion. Nontender with no deformity. No lesions are appreciated. Cardiovascular: Regular rate and rhythm with a normal S1 and S2. No gallops, murmurs, or rubs. Normal PMI, no JVD. No pulse deficits. Abdomen/GI: Soft, non-tender, with normal bowel sounds. No distension or tympany. No guarding or rebound. No evidence of tenderness throughout. Back: No spinal tenderness. No costovertebral tenderness. Full range of motion. Skin: Warm, dry with normal turgor. Normal color with no rashes, no lesions, and no evidence of cellulitis. MS/ Extremity: Pulses equal, no cyanosis. Neurovascular intact. Full, normal range of motion. Neuro: Awake and alert, GCS 15, oriented to person, place, time, and situation. Cranial nerves II-XII grossly intact. Motor strength 5/5 in all extremities. Sensory grossly intact. Cerebellar exam normal. Normal gait. 16:19 Respiratory: mild respiratory distress is noted, Respirations: labored breathing, that is mild, Breath sounds: wheezing: inspiratory expiratory that is moderate, is scattered. Vital Signs: 15:27 BP 161 / 93; Pulse 103; Resp 22; Temp 98.5(TE); Pulse Ox 98% on R/A; Weight 99.79 kg tw2 (R); Height 5 ft. 4 in. (162.56 cm) (R); Pain 7/10; 16:27 BP 120 / 71; Pulse 110; Resp 21; Pulse Ox 99% on R/A; rv 17:32 BP 100 / 66; Pulse 111; Resp 18; Pulse Ox 100% on Nebulizer Mask; rv 18:09 BP 104 / 58; Pulse 111; Resp 17; Pulse Ox 98% on R/A; rv 15:27 Body Mass Index 37.76 (99.79 kg, 162.56 cm) tw2 MDM: 15:31 Patient medically screened. kb 16:19 Data reviewed: vital signs, nurses notes. Data interpreted: Pulse oximetry: on room air kb is 98 %. Interpretation: normal. 16:51 Counseling: I had a detailed discussion with the patient and/or guardian regarding: the kb historical points, exam findings, and any diagnostic results supporting the discharge/admit diagnosis, radiology results, the need for outpatient follow up, a family practitioner, to return to the emergency department if symptoms worsen or persist or if there are any questions or concerns that arise at home. 17:28 ED course: Pt clarified that she was given a shot of steroids at , was not given a kb course of PO steroids, only antibiotics. will send home with a course of steroids. Pt to continue neb treatments at home and follow up with PCP. . 06/19 15:27 Order name: Chest Pa And Lat (2 Views) XRAY; Complete Time: 17:02 kb 06/19 15:34 Order name: IV Start; Complete Time: 15:48 kb Administered Medications: 15:48 Drug: Magnesium Sulfate 2 grams Route: IVPB; Infused Over: 2 hrs; Site: right rv antecubital; 16:28 Follow up: IV Status: Completed infusion rv 15:48 Drug: SOLU-Medrol 125 mg Route: IVP; Site: right antecubital; rv 16:28 Follow up: Response: No adverse reaction rv 15:48 Drug: NS 0.9% 1000 ml Route: IV; Rate: 1000 ml; Site: right antecubital; rv 16:28 Follow up: IV Status: Completed infusion; IV Intake: 1000ml rv 15:49 Drug: DuoNeb (3:1) (2.5 mg - 0.5 mg) 3 ml Route: Nebulizer; rv 16:28 Follow up: Response: No adverse reaction; Wheezing diminished rv 17:02 Drug: Albuterol 2.5 mg Route: Inhalation; rv 17:03 Drug: Albuterol 2.5 mg Route: Inhalation; rv 18:10 Follow up: Response: Marked relief of symptoms rv 17:03 Drug: Albuterol 2.5 mg Route: Inhalation; rv Disposition: 06/20 07:04 Co-signature as Attending Physician, Andrea Xie MD I agree with the assessment and dex plan of care. Disposition: 06/19/19 17:42 Discharged to Home. Impression: Unspecified asthma with (acute) exacerbation. - Condition is Stable. - Discharge Instructions: Asthma, Adult, [id number]. - Prescriptions for Albuterol Sulfate 90 mcg/actuation - inhale 1-2 puff by INHALATION route every 4-6 hours; 1 Inhaler. Medrol (Garth) 4 mg Oral Tablets, Dose Pack - take 1 tablet by ORAL route as directed - follow package instructions; 1 packet. - Medication Reconciliation Form, Thank You Letter, Antibiotic Education, Prescription Opioid Use form. - Follow up: Emergency Department; When: As needed; Reason: Worsening of condition. Follow up: Private Physician; When: 2 - 3 days; Reason: Recheck today's complaints, Continuance of care, Re-evaluation by your physician. Signatures: Dispatcher [employer] Ange Wallace, ELEMENTARY TUTOR-C ELEMENTARY TUTOR-Andrea Cox MD MD cha Wise, Tara, RN RN tw2 Paco Valerio RN RN rv Corrections: (The following items were deleted from the chart) 06/19 16:51 16:51 Counseling: I had a detailed discussion with the patient and/or guardian duarte regarding: the historical points, exam findings, and any diagnostic results supporting the discharge/admit diagnosis, lab results, radiology results, the need for outpatient follow up, a family practitioner, to return to the emergency department if symptoms worsen or persist or if there are any questions or concerns that arise at home, duarte 18:10 17:42 06/19/2019 17:42 Discharged to Home. Impression: Unspecified asthma with (acute) rv exacerbation. Condition is Stable. Discharge Instructions: Asthma, Adult, [id number]. Prescriptions for Albuterol Sulfate 90 mcg/actuation - inhale 1-2 puff by INHALATION route every 4-6 hours; 1 Inhaler, Medrol (Garth) 4 mg Oral Tablets, Dose Pack - take 1 tablet by ORAL route as directed - follow package instructions; 1 packet. and Forms are Medication Reconciliation Form, Thank You Letter, Antibiotic Education, Prescription Opioid Use. Follow up: Emergency Department; When: As needed; Reason: Worsening of condition. Follow up: Private Physician; When: 2 - 3 days; Reason: Recheck today's complaints, Continuance of care, Re-evaluation by your physician. kb
[2019-06-19 18:42] VITALS: TEMP 98.5
[2019-06-19 18:48] VITALS: BP 104/58; O2SAT 98
== END 2019-06-19 18:10 | disposition home or self-care (01) ==
LOC: ER 15:09
DX: J45.901 Unspecified asthma with (acute) exacerbation (principal); E03.9 Hypothyroidism, unspecified
CPT/HCPCS: 96365; 71046; 94640; 96375; 99285; J3475; J7030; J2930